=== PATIENT | male | born 1980 | race Caucasian/White ===

== ENCOUNTER 2017-07-11 00:20 | Emergency (ER) | payer OTHER ==
[2017-07-11] MEDS ORDERED: ACETAMINOPHEN TAB 500 MG TAB PO STA (00:57)
[2017-07-11] MEDS ORDERED: TOPICAL SKIN ADHESIVE 1 EACH AMP TOPICAL ONE (00:57)
[2017-07-11] MEDS ORDERED: DIPH,PERTUS(ACELL)TETVAC-LF 0.5 ML VIAL IM ONE (00:57)
--- NOTE | 2017-07-11 01:33 | ED ---
Wound/Laceration HPI - General Chief Complaint: Wound/Laceration Stated Complaint: eyebrow lac Time Seen by Provider: 07/11/17 00:50 Source: patient Mode of arrival: ambulatory Limitations: no limitations - History of Present Illness Initial Comments: 37-year-old male patient presents to emergency department today for evaluation after sustaining a head injury. Patient states that he was working on car, states that there is a metal piece above him approximately 6-12 inches. He states that the piece fell and struck him in the forehead. Patient does have a laceration just above the right eyebrow. He states after happened he did have some blurred vision for approximately 20 minutes however this did resolve. He denies any loss of consciousness. He states he does now have a headache. He is reporting some photosensitivity. He denies any dizziness, weakness, current blurred or double vision, nausea, or vomiting. He states last tetanus vaccine was approximately 5-6 years ago. He denies any other injuries. Patient denies any neck pain, back pain, chest pain, shortness of breath, abdominal pain, or difficulties with bowel movements or urination. - Related Data Home Medications Medication Instructions Recorded Confirmed HYDROcodone/APAP 10-325MG [[place] 1 tab PO Q6H PRN 07/11/17 07/11/17 10-325] Lansoprazole [Prevacid] 30 mg PO DAILY 07/11/17 07/11/17 Naproxen [Naprosyn] 500 mg PO Q12HR 07/11/17 07/11/17 Pravastatin Sodium [Pravachol] 10 mg PO HS 07/11/17 07/11/17 Allergies Allergy/AdvReac Type Severity Reaction Status Date / Time codeine Allergy Itching Verified 07/11/17 00:39 Review of Systems ROS Statement: Those systems with pertinent positive or pertinent negative responses have been documented in the HPI. ROS Other: All systems not noted in ROS Statement are negative. Past Medical History Past Medical History: No Reported History History of Any Multi-Drug Resistant Organisms: None Reported Past Surgical History: Back Surgery Past Psychological History: No Psychological Hx Reported Smoking Status: Current every day smoker Past Alcohol Use History: None Reported Past Drug Use History: None Reported General Exam Limitations: no limitations General appearance: alert, in no apparent distress, other (This is a well- developed, well-nourished adult male patient in no acute distress. Vital signs upon presentation were temperature 98.3, pulse 82, respirations 18, blood pressure 130/73, pulse ox 98% on room air.) Head exam: Present: other (Examination of the forehead does reveal a 1 cm stellate laceration to the right forehead just above the eyebrow. Bleeding is controlled. He does have some tenderness surrounding the area of the laceration , no bony step-off or deformity noted.) Eye exam: Present: normal appearance, PERRL, EOMI, other (Extraocular movements intact without any pain or limitation.). Absent: scleral icterus, conjunctival injection, periorbital swelling ENT exam: Present: normal exam, normal oropharynx, mucous membranes moist Neck exam: Present: normal inspection, full ROM, other (Nontender, no step-off, no deformity to firm midline palpation of the posterior cervical spine. Full range of motion without pain or limitation.). Absent: tenderness, meningismus, lymphadenopathy Respiratory exam: Present: normal lung sounds bilaterally. Absent: respiratory distress, wheezes, rales, rhonchi, stridor Cardiovascular Exam: Present: regular rate, normal rhythm, normal heart sounds. Absent: systolic murmur, diastolic murmur, rubs, gallop, clicks Neurological exam: Present: alert, oriented X3, CN II-XII intact Psychiatric exam: Present: normal affect, normal mood Skin exam: Present: warm, dry, intact, normal color. Absent: rash Course Vital Signs 07/11/17 00:35 Temperature 98.3 F Pulse Rate 82 Respiratory 18 Rate Blood Pressure 130/73 O2 Sat by Pulse 98 Oximetry Medical Decision Making - Medical Decision Making 37-year-old male patient evaluated for right eyelid laceration and head injury. 1 cm stellate laceration was repaired with Dermabond. They were educated regarding signs or symptoms of infection. Patient neurological examination intact. Patient reporting symptoms of headache and photophobia. Patient was discharged home with diagnosis of concussion and instructed to follow-up with his primary care physician for recheck in 1-2 days. He and his mother were educated regarding worsening head injury and instructed to monitor for symptoms. They were instructed to return here immediately for any change. Patient verbalizes understanding and agrees with this plan. Disposition Clinical Impression: Head injury, Laceration Disposition: HOME SELF-CARE Condition: Good Instructions: Laceration (ED), Head Injury (ED), Skin Adhesive Care (ED) Additional Instructions: Monitor wound for signs or symptoms of infection couldn't redness, swelling, pain, drainage of pus, fever, or chills. Do not pick or pull at the Dermabond. Skin glue will dissolve on its own in 3-5 days. It is okay to get this area wet, do not scrub. Monitor for signs of worsening head injury including but not limited to worsening headache, vomiting, dizziness, weakness, or confusion. Referrals: Eladio Chamberlain MD [Primary Care Provider] - 1-2 days Time of Disposition: 01:33
[2017-07-11 01:56] VITALS: BP 125/78; PULSE 80; RESP 16; TEMP 98
== END 2017-07-11 01:56 | disposition home or self-care (01) ==
LOC: EC 00:20
DX: S01.111A Laceration without foreign body of right eyelid and periocular area, initial encounter (principal); H53.8 Other visual disturbances; F17.200 Nicotine dependence, unspecified, uncomplicated; Z79.1 Long term (current) use of non-steroidal anti-inflammatories (NSAID); Z79.899 Other long term (current) drug therapy; Z88.5 Allergy status to narcotic agent; Z23 Encounter for immunization; W22.8XXA Striking against or struck by other objects, initial encounter
CPT/HCPCS: 12011; 90471; 90715; 99282

== ENCOUNTER → 2024-09-12 | Outpatient (CLI) | payer OTHER ==
--- NOTE | 2024-09-12 13:33 | US ---
EXAMINATION TYPE: US kidneys/renal and bladder DATE OF EXAM: 09/12/2024 COMPARISON: NONE CLINICAL INDICATION: Male, 44 years old with history of R10.9 ABD PAIN; Bilateral flank pain x few we eks TECHNIQUE: Grayscale imaging of the bilateral kidneys and urinary bladder: FINDINGS: EXAM MEASUREMENTS: Right Kidney: 12.8 x 6.1 x 7.0 cm Left Kidney: 12.0 x 6.1 x 5.3 cm Post Void Residual Volume: NA mL Right Kidney: Prominent renal pelvis Left Kidney: wnl, no evidence for hydronephrosis, mass or renal calculus. Bladder: WNL Bilateral Jets seen: Yes Normal Post Void Residual: NA There is no evidence for hydronephrosis at this point in time. Prominent right renal pelvis. No nephr olithiasis is seen. Cortical medullary differentiation is maintained bilaterally. No masses are ident ified. The urinary bladder is anechoic. IMPRESSION: No hydronephrosis or nephrolithiasis. [facility], , 09/12/2024 1:30 PM
== END | disposition home or self-care (01) ==
LOC: RADUSWWP 13:08
PROVIDERS: ATTEND Family Medicine
DX: R10.9 Unspecified abdominal pain (principal)
CPT/HCPCS: 76770